=== PATIENT | male | born 1985 | race American Indian/Alaskan Native ===

== ENCOUNTER 2018-10-15 07:37 | Emergency (ER) | payer MEDICAID, OTHER, SELFPAY ==
--- NOTE | 2018-10-15 07:47 | DI.RAD.S_ITS ---
PROCEDURE: XR CHEST 2V INDICATIONS: SOB TECHNIQUE: 2 views of the chest were acquired. COMPARISON: [facility], , CHEST 2VW, 05/11/2009, 0:04. FINDINGS: Surgical changes and devices: None. Lungs and pleura: Lungs are clear. No pleural effusions or pneumothorax. Mediastinum: Mediastinal contours are normal. Heart size is normal. Bones and chest wall: No suspicious bony abnormalities. Soft tissues appear unremarkable. IMPRESSION: No acute cardiopulmonary disease process. Dictated by: Sharmin Azar MD, PhD on 10/15/2018 at 8:12 Approved by: Sharmin Azar MD, PhD on 10/15/2018 at 8:13
[2018-10-15 07:49] VITALS: BP 138/89; PULSE 130; RESP 18; TEMP 37.2; O2SAT 97; BMI 24.2
--- NOTE | 2018-10-15 07:54 | ED_ITS ---
HPI - URI/Sore Throat General Chief Complaint: Upper Respiratory Symptoms Stated Complaint: FLU UPPER RESPITORY PAIN Time Seen by Provider: 10/15/18 07:39 Source: patient Mode of arrival: ambulatory Limitations: no limitations History of Present Illness HPI Narrative: A 33-year-old male occasional smoker whom also admits to IV use of heroin and smoking methamphetamines as recently as last night presents with some cough, runny nose, sore throat and bilateral lower back. He denies any measured fever or shaking chills. He states he has felt this way for about a week and has multiple family members with the flu, he is convinced he also has the flu. He denies nausea, vomiting or diarrhea. He denies dysuria, frequency or urgency. He states he has a burning sensation in his lungs which is worse with a deep breath Onset (ago): day(s) Duration: intermittent Severity: moderate Relieving factors: nothing Context: sick contacts Treatments prior to arrival: none Related Data Home Medications Medication Instructions Recorded Confirmed acetaminophen 1,000 mg PO PRN #0 02/17/10 Allergies Allergy/AdvReac Type Severity Reaction Status Date / Time No Known Drug Allergies Allergy Verified 10/15/18 07:49 Review of Systems Constitutional Reports body ache(s), Denies chills, Denies fever(s), Denies lethargy and Denies weakness Eyes Denies change in vision, Denies eye discharge, Denies irritation and Denies loss of vision ENT Ears, Nose, Mouth, and Throat: Denies change in voice, Denies neck pain and Denies sore throat Cardiovascular Denies chest pain, Denies irregular heart rhythm, Denies lightheadedness, Denies palpitations, Denies dyspnea, Denies dyspnea on exertion and Denies orthopnea Respiratory Denies cough, Denies dyspnea, Denies dyspnea on exertion and Denies wheezing Gastrointestinal Gastrointestinal: Denies abdominal pain, Denies change in bowel habits, Denies diarrhea, Denies nausea and Denies vomiting Genitourinary Denies hematuria, Denies flank pain, Denies urinary incontinence and Denies urinary urgency Musculoskeletal Denies neck pain Integumentary/Breasts Denies pruritus, Denies erythema, Denies rash and Denies wounds Neurologic Denies confusion, Denies loss of vision and Denies weakness Psychiatric Denies anxiety, Denies confusion, Denies depression, Denies homicidal ideation and Denies suicidal ideation Endocrine Denies palpitations Hematologic/Lymphatic Denies easy bruising Allergic/Immunologic Denies wheezing PFSH Social History Smoking Status: Current every day smoker Social History Smoking Status: Current every day smoker Exam Narrative Exam Narrative: GENERAL: Patient is fidgeting a bit with pressured speech and pacing in the room, he admits to smoking methamphetamines last night This is a w ell-nourished, well-developed patient, in mild distress. HEAD: Atraumatic. Normocephalic. No temporal or scalp tenderness. EYES: Pupils equal round and reactive. Extraocular motions intact. No scleral icterus. No injection or drainage. ENT: Nose without bleeding, purulent drainage or septal hematoma. Throat without erythema, tonsillar hypertrophy or exudate. Uvula midline. Airway patent. NECK: Trachea midline. No JVD or lymphadenopathy. Supple, nontender, no meningeal signs. CARDIOVASCULAR: Regular rate and rhythm without murmurs, gallops, or rubs. RESPIRATORY: Clear to auscultation. Breath sounds equal bilaterally. No wheezes, rales, or rhonchi. GASTROINTESTINAL: Abdomen soft, non-tender, nondistended. No hepato- splenomegaly, or palpable masses. No guarding. EXTREMITIES: No clubbing, cyanosis, or edema. No joint tenderness, effusion, or edema noted. BACK: No midline tenderness or neurologic findings such as saddle anesthesia, numbness, tingling or depressed reflexes NEURO: AOx3. SKIN: No rash or erythema. Initial Vital Signs Initial Vital Signs: Vital Signs Temperature 98.9 F 10/15/18 07:49 Pulse Rate 130 H 10/15/18 07:49 Respiratory Rate 18 10/15/18 07:49 Blood Pressure 138/89 10/15/18 07:49 Pulse Oximetry 97 10/15/18 07:49 Course Orders Ordered: Discontinued Medications Ibuprofen (Advil) 800 mg PO NOW ONE Stop: 10/15/18 07:47 Last Admin: 10/15/18 07:59 Dose: 800 mg Vital Signs - 8 hr 10/15/18 07:49 10/15/18 08:43 Temperature 98.9 F Pulse Rate 130 H 97 H Respiratory Rate 18 18 Blood Pressure 138/89 125/76 Pulse Oximetry 97 96 MDM - URI/Sore Throat Lab Data Lab Results 03/18/19 03/18/19 Range/Units 07:50 07:50 Urine Opiates Screen Positive H (Negative) Ur Oxycodone Screen Positive H (Negative) Urine Methadone Screen Negative (Negative) Ur Barbiturates Screen Negative (Negative) U Tricyclic Antidepress Negative (Negative) Ur Phencyclidine Scrn Negative (Negative) Ur Amphetamines Screen Positive H (Negative) U Methamphetamines Scrn Positive H (Negative) Ur MDMA Scrn (Ecstasy) Positive H (Negative) U Benzodiazepines Scrn Negative (Negative) Urine Cocaine Screen Negative (Negative) U Marijuana (THC) Screen Negative (Negative) Influenza A & B (PCR) Negative (Negative) MDM Narrative Medical decision making narrative: 33-year-old male with full capacity to make his own decisions refuses any more thorough evaluation such as blood work despite a lengthy discussion about his increased risk given his use of IV drugs. He has no midline back tenderness making the likelihood of epidural abscess or spinal osteomyelitis much last. Furthermore the patient has no chest pain or friction rub Discharge Plan Departure Patient Disposition: Home Clinical Impression: Upper respiratory infection Qualifiers: URI type: unspecified viral URI Qualified Code(s): J06.9 - Acute upper respiratory infection, unspecified Discharge Date/Time: 10/15/18 08:44 Interventions: ED Discharge Assessment Last Done: 10/15/18 08:43 Instructions: DI for Viral Upper Respiratory Infection -- Adult Activity Restrictions/Additional Instructions: *You have been diagnosed with [ viral syndrome, back pain ] *What to do: *Take medications as directed: over the counter Motrin/Tylenol *Follow up with your primary care provider in 2-3 days, call for an appointment. Let them know you were seen in the Emergency Department and that we ask that you be seen in follow up *Return to ER if you should have any new, worsening or concerning symptoms, such as [ fever, shaking chills, nausea, vomiting, chest pain, shortness of breath or other bothersome symptoms] Prescriptions: No Action acetaminophen 325 MG tablet 1,000 mg PO PRN Qty: 0 RF: 0
[2018-10-15] MEDS: IBUPROFEN 400 MG TABLET 800 MG PO (07:59)
[2018-10-15 08:09] LABS: Influenza A and B by PCR Rapid Negative (Negative)
[2018-10-15 08:13] LABS: Urine Amphetamines Positive (Negative); Urine Cocaine Negative (Negative); Urine MDMA Positive (Negative); Urine Methamphetamines Positive (Negative); Urine Morphine/Opi cutoff 2000 Positive (Negative); Urine Phencyclidine Negative (Negative); Urine Tetrahydrocannabinol Negative (Negative)
[2018-10-15 08:14] LABS: Urine Barbiturates Negative (Negative); Urine Benzodiazepines Negative (Negative); Urine Methadone Negative (Negative); Urine Oxycodone Positive (Negative); Urine Tricyclic Antidepressant Negative (Negative)
[2018-10-15 08:43] VITALS: BP 125/76; PULSE 97; RESP 18; O2SAT 96
== END 2018-10-15 08:44 | disposition home or self-care (01) ==
PROVIDERS: Emergency Provider Emergency Medicine
DX: J06.9 Acute upper respiratory infection, unspecified (principal)
CPT/HCPCS: 71046; 80305; 87400; 99282; 99284

== ENCOUNTER 2021-01-13 22:27 | Emergency (ER) | payer MEDICAID, OTHER, SELFPAY ==
[2021-01-13 22:35] VITALS: BP 173/114; PULSE 99; RESP 16; TEMP 36.3; O2SAT 97; BMI 30.7
[2021-01-13] MEDS: FLUORESCEIN 1 MG STRIP EYE-RIGHT (22:46)
[2021-01-13] MEDS: PROPARACAINE 0.5% OPHTH SOL 1 DROPS EYE-RIGHT (22:47)
--- NOTE | 2021-01-13 23:26 | ED.EYEPROB ---
HPI - Eye Problem General Chief complaint: Eye Problems Stated complaint: rt eye possible FB Time Seen by Provider: 01/13/21 22:59 Source: patient Mode of arrival: Ambulatory Limitations: no limitations History of Present Illness HPI Narrative: Patient is a 35-year-old male with history of polysubstance abuse but clean for 20 months presenting with right eye pain. He says 3 days ago he was trying to put a bowl into a boat he is unsure if he got anything in his eye but since then he said increased sensitivity to light and foreign body sensation. He denies any drainage from it no change in vision. He is quite anxious. chief complaint: eye pain Onset (ago): day(s) Onset description: sudden Duration: constant Location: right eye Eye Symptoms: foreign body sensation Related Data Home Medications Medication Instructions Recorded Confirmed acetaminophen 1,000 mg PO PRN #0 02/17/10 Allergies Allergy/AdvReac Type Severity Reaction Status Date / Time No Known Drug Allergies Allergy Verified 10/15/18 07:49 Review of Systems Review of Systems Narrative: GENERAL: Denies chills,fever HEENT: See HPI RESPIRATORY: Denies dyspnea, cough, wheezing CARDIOVASCULAR: Denies chest pain, palpitations GASTROINTESTINAL: Denies nausea, vomiting MUSCULOSKELETAL: Denies extremity pain, injury SKIN: No rash, no laceration, no pruritus NEUROLOGIC: Denies weakness, dizziness, headache, numbness 8 point review of systems is negative except for those stated above and HPI Patient History Medical History Polysubstance abuse Social History Smoking Status: Current every day smoker Smoking Status: Current every day smoker Substance Use Type: heroin, amphetamines and methamphetamine Exam Initial Vital Signs Initial Vital Signs: Vital Signs Temperature 97.3 F L 01/13/21 22:35 Pulse Rate 99 H 01/13/21 22:35 Respiratory Rate 16 01/13/21 22:35 Blood Pressure 173/114 H 01/13/21 22:35 Pulse Oximetry 97 01/13/21 22:35 GENERAL: Well-appearing, well-nourished and in no acute distress. Right eye was treated with proparacaine, stained with fluorescein. The obvious scratch across cornea no foreign body identified no laceration EOMI intact, MERLENE CARDIOVASCULAR: peripheral pulses in tact, cap refill <2 sec RESPIRATORY: No respiratory distress, speaks in full sentences without difficulty EXTREMITIES: Normal range of motion, no clubbing or edema. Neurovascularly intact NEUROLOGICAL: Cranial nerves II through XII grossly intact. Normal gait and speech. SKIN: Warm, dry, no petechiae, no rashes or lesions. Course Orders Ordered: Discontinued Medications Fluorescein Sodium (Fluorescein 1 Mg Strip) 1 mg EYE-RIGHT NOW ONE Stop: 01/13/21 22:39 Last Admin: 01/13/21 22:46 Dose: 1 mg Documented by: GENO Polymyxin/Trimethoprim Sulfate (Polymy B/Trimeth Ophth Prepack) 1 bottle MISC SEEINSTR ONE Stop: 01/13/21 23:34 Last Admin: 01/13/21 23:36 Dose: 1 prepack Documented by: ROYAL Proparacaine HCl (Proparacaine 0.5% Ophth Shelia) 1 drops EYE-RIGHT NOW ONE Stop: 01/13/21 22:38 Last Admin: 01/13/21 22:47 Dose: 1 drops Documented by: GENO Vital Signs Vital signs: Vital Signs - 8 hr 01/13/21 22:35 01/13/21 23:45 Temperature 97.3 F L Pulse Rate 99 H 80 Respiratory Rate 16 22 Blood Pressure 173/114 H 145/88 H Pulse Oximetry 97 99 Discharge Plan Departure Patient Disposition: Home Clinical Impression: Corneal abrasion Qualifiers: Encounter type: initial encounter Laterality: right Qualified Code(s): S05.01XA - Injury of conjunctiva and corneal abrasion without foreign body, right eye, initial encounter Instructions: Corneal Abrasion Activity Restrictions/Additional Instructions: *You have been diagnosed with right eye corneal abrasion *What to do: He will be sensitive to light but your eye should heal over the next few days you have small scratch in her eye. *Continue to take medications as directed Polytrim drops 1-2 drops every 4 hours while awake Motrin 800 mg every 8 hours if needed for [id number] pain Or Tylenol 1000 mg every 6 hours if needed for pain *Follow up with your primary care provider in 2-3 days *Return to ER if you should have increasing pain loss of vision, or any new, worsening or concerning symptoms Prescriptions: No Action acetaminophen 325 MG tablet 1,000 mg PO PRN Qty: 0 RF: 0
[2021-01-13] MEDS: POLYMY B/TRIMETH OPHTH PREPACK 1 BOTTLE MISC (23:36)
[2021-01-13 23:45] VITALS: BP 145/88; PULSE 80; RESP 22; O2SAT 99
== END 2021-01-13 23:45 | disposition home or self-care (01) ==
PROVIDERS: Emergency Provider Emergency Medicine
DX: S05.01XA Injury of conjunctiva and corneal abrasion without foreign body, right eye, initial encounter (principal)
CPT/HCPCS: 99282

== ENCOUNTER 2023-08-07 10:02 | Emergency (ER) | payer MEDICAID, OTHER, SELFPAY ==
[2023-08-07 10:13] VITALS: BP 135/104; PULSE 133; RESP 15; TEMP 36.4; O2SAT 98; BMI 29.0
[2023-08-07 10:36] LABS: Appearance Urine UA CLEAR; Color Urine UA ORANGE
[2023-08-07 10:41] LABS: Bacteria Urine Few (2-10); Culture Indicated Urine Specimen Cultured; Mucus Urine 1+ (Negative); RBC Urine 0-1/HPF (0-5/HPF); Squamous Epithelial Cell Urine 1-5 /HPF (0-5/HPF); WBC Urine 5-10/HPF (0-5/HPF)
[2023-08-07 10:52] LABS: Add Manual Diff / Slide Review NO; Basophils Absolute Auto 100 /uL (0-100); Basophils Percent Auto 0.8 % (0-2); Eosinophils Absolute Auto 0 /uL (0-450); Eosinophils Percent Auto 0.2 % (2-4); Hematocrit 48.4 % (41-53); Hemoglobin 16.1 g/dL (13.5-17.5); Lymphocytes Absolute Auto 1300 /uL (1100-4500); Lymphocytes Percent Auto 10.7 % (25-40); Mean Corpuscular HGB Conc 33.1 % (30-36); Mean Corpuscular Hemoglobin 29.9 PG (26-34); Mean Corpuscular Volume 90.3 fL (80-100); Monocytes Absolute Auto 600 /uL (0-900); Monocytes Percent Auto 5.1 % (3-14); Neutrophils Absolute Auto 10400 /uL (1500-7000); Neutrophils Percent Auto 83.2 % (50-75); Platelet Count 606 X10^3/uL (150-400); Red Blood Cell Count 5.36 X10^6/uL (4.5-5.9); Red Cell Distribution Width 18.2 % (11.6-14.8); White Blood Cell Count 12.5 X10^3/uL (4.5-11.0)
[2023-08-07 10:53] LABS: Alanine Aminotransferase 117 IU/L (<50); Albumin 4.2 g/dL (3.5-5.0); Albumin Globulin Ratio 1.1 (1.0-2.8); Alkaline Phosphatase 174 U/L (38-126); Aspartate Aminotransferase 149 IU/L (17-59); BUN Creatinine Ratio 9.9 (6-22); Bilirubin Total 2.6 mg/dL (0.2-1.3); Blood Urea Nitrogen 10 mg/dL (9-20); Calcium 9.1 mg/dL (8.4-10.2); Carbon Dioxide 21 mmol/L (22-32); Chloride 103 mmol/L (98-107); Estimated Glomerular Filt Rate > 60 mL/min (>60); Glucose 110 mg/dL (70-100); HEMOLYSIS 31 (0-50); Lipase 265 U/L (23-300); Potassium 3.6 mmol/L (3.4-5.1); Sodium 136 mmol/L (137-145); Total Protein 8.2 g/dL (6.3-8.2)
[2023-08-07 11:39] VITALS: BP 129/91; PULSE 127; O2SAT 98
[2023-08-07 12:42] VITALS: BP 135/97; PULSE 112; O2SAT 100
--- NOTE | 2023-08-07 13:27 | DI.CT.S_ITS ---
PROCEDURE: CT KIDNEY URETER BLADDER (KUB) INDICATIONS: flank pain hematura TECHNIQUE: Axial sections were acquired from the lung bases to the pubic symphysis. Coronal and sagittal reformats were performed. For radiation dose reduction, the following was used: automated exposure control, adjustment of mA and/or kV according to patient size. COMPARISON: None. FINDINGS: Image quality: Diagnostic. Lower Chest: No significant findings. URINARY: Right Kidney: No stones or hydronephrosis. Right Ureter: No hydroureter. Left Kidney: No stones or hydronephrosis. Left Ureter: No hydroureter. Bladder: Normal wall thickness. No stones. ABDOMEN: Liver: No contour-deforming solid mass. Diffusely decreased hepatic density. Gallbladder: No radiopaque gallstones or wall thickening. Biliary ducts: No biliary dilation. Pancreas: No ductal dilation. Spleen: Size is within normal limits. Adrenal Glands: No adrenal nodules. Stomach and Bowel: Normal colonic caliber, without significant wall thickening. Normal appendix. Peritoneum: No abnormal intraperitoneal fluid. No free air. Ventral Wall: No hernia. Abdominal Nodes: No enlarged retroperitoneal or mesenteric lymph nodes. Vessels: Aorta and inferior vena cava are normal in size. PELVIS: Pelvic Organs: Unremarkable. Pelvic Nodes: Unremarkable. Miscellaneous: No inguinal hernias are seen. Bones: Unremarkable. IMPRESSION: 1. No evidence of urinary tract calcification or obstruction. 2. Hepatic steatosis. 3. Normal appendix. Dictated by: Eneida Way M.D. on 08/07/2023 at 13:45 Approved by: Eneida Way M.D. on 08/07/2023 at 13:47
[2023-08-07] MEDS: LORazepam 0.5 MG TABLET 2 MG PO (13:40)
[2023-08-07 13:43] LABS: Ethanol (ETOH) 17 mg/dL
[2023-08-07 14:14] VITALS: BP 141/99; PULSE 107; O2SAT 97
--- NOTE | 2023-08-08 18:54 | ED.MALEGU ---
HPI - Male Genitourinary General Chief complaint: Urogenital-Male Stated complaint: blood in urine chest pain Time Seen by Provider: 08/07/23 11:24 Source: patient Mode of arrival: Ambulatory History of Present Illness HPI Narrative: 38-year-old male here complaining of dysuria. Also thinks he may have had some blood in his urine yesterday. Not having fevers leg pain or vomiting. Also actively using methamphetamine and alcohol. He is interested in treatment for his alcohol use. Feels a little shaky because he has not drank in a few hours. Related Data Home Medications Medication Instructions Recorded Confirmed acetaminophen 325 mg tablet 1,000 mg PO PRN ##0 02/17/10 Previous Rx's Medication Instructions Recorded cefdinir 300 mg capsule 300 mg PO BID #20 caps 08/07/23 Allergies Allergy/AdvReac Type Severity Reaction Status Date / Time No Known Drug Allergies Allergy Verified 08/07/23 10:13 Patient History Medical History Polysubstance abuse Social History Smoking Status: Current every day smoker Smoking Status: Current every day smoker tobacco type: vaping alcohol intake frequency: 3 or more drinks per day Substance Use Type: heroin, amphetamines and methamphetamine Exam Initial Vital Signs Initial Vital Signs: Vital Signs Temperature 97.6 F 08/07/23 10:13 Pulse Rate 133 H 08/07/23 10:13 Respiratory Rate 15 08/07/23 10:13 Blood Pressure 135/104 H 08/07/23 10:13 Pulse Oximetry 98 08/07/23 10:13 Oxygen Delivery Method Room Air 08/07/23 10:13 Const General: No acute distress HENMT Head: normocephalic and atraumatic Mouth: moist mucous membranes Resp Effort & Inspection: normal respiratory effort and able to speak in complete sentences Auscultation: clear to auscultation bilaterally Cardio Rate: tachycardic Rhythm: regular rhythm Heart Sounds: S1 normal, S2 normal and no murmurs GI Palpation: soft and No tender Other: No CVAT Skin General: dry skin and warm Neuro General: patient alert and patient oriented x3 Psych Appearance: well kempt Mood: congruent mood Thought Process: normal Thought Content: no delusions, no hallucinations, no homicidality and suicidality Course Orders Ordered: Discontinued Medications Lorazepam (Lorazepam 0.5 Mg Tablet) 2 mg PO NOW ONE Stop: 08/07/23 13:28 Last Admin: 08/07/23 13:40 Dose: 2 mg Documented By: GREGG Ondansetron HCl (Ondansetron 4 Mg/2 Ml Inj) 4 mg IV NOW PRN PRN Reason: Nausea And Vomiting MDM - Male Genitourinary Lab Data Lab results narrative: CBC showed a mild leukocytosis and elevated platelet count, nonspecific. Total bilirubin is 2 6, he does not have right upper quadrant tenderness or jaundice. Urinalysis is remarkable for pyuria 08/07/23 10:25 08/07/23 10:25 Labs: Lab Results 08/07/23 08/07/23 08/07/23 Range/Units 10:21 10:25 13:35 WBC 12.5 H (4.5-11.0) X10^3/uL RBC 5.36 (4.5-5.9) X10^6/uL Hgb 16.1 (13.5-17.5) g/dL Hct 48.4 (41-53) % MCV 90.3 (80-100) fL MCH 29.9 (26-34) PG MCHC 33.1 (30-36) % RDW 18.2 H (11.6-14.8) % Plt Count 606 H (150-400) X10^3/uL Neut % (Auto) 83.2 H (50-75) % Lymph % (Auto) 10.7 L (25-40) % [place] % (Auto) 5.1 (3-14) % Eos % (Auto) 0.2 L (2-4) % Baso % (Auto) 0.8 (0-2) % Neut # (Auto) 61570 H (1937-8983) /uL Lymph # (Auto) 1300 (1669-6462) /uL [place] # (Auto) 600 (0-900) /uL Eos # (Auto) 0 (0-450) /uL Baso # (Auto) 100 (0-100) /uL Sodium 136 L (137-145) mmol/L Potassium 3.6 (3.4-5.1) mmol/L Chloride 103 (98-107) mmol/L Carbon Dioxide 21 L (22-32) mmol/L BUN 10 (9-20) mg/dL Creatinine 1.01 (0.66-1.25) mg/dL Estimated GFR > 60 (>60) mL/min BUN/Creatinine Ratio 9.9 (6-22) Glucose 110 H (70-100) mg/dL Calcium 9.1 (8.4-10.2) mg/dL Total Bilirubin 2.6 H (0.2-1.3) mg/dL AST 149 H (17-59) IU/L ALT 117 H (<50) IU/L Alkaline Phosphatase 174 H (38-126) U/L Total Protein 8.2 (6.3-8.2) g/dL Albumin 4.2 (3.5-5.0) g/dL Globulin 4.0 (1.7-4.1) g/dL Albumin/Globulin Ratio 1.1 (1.0-2.8) Lipase 265 (23-300) U/L Urine Color [place] Urine Appearance Clear Urine pH TNP Ur Specific [place] TNP Urine Protein TNP Urine Glucose (UA) TNP Urine Ketones TNP Urine Occult Blood TNP Urine Nitrate TNP Urine Bilirubin TNP Urine Urobilinogen TNP Ur Leukocyte Esterase TNP Urine RBC 0-1/hpf (0-5/HPF) Urine WBC 5-10/hpf H (0-5/HPF) Ur Squamous Epith Cells 1-5 /hpf (0-5/HPF) Urine Bacteria Few (2-10) H (None) Urine Mucus 1+ H (Negative) Ur Culture Indicated? Specimen cultured Ethyl Alcohol 17 H ( - 10) mg/dL [facility] Narrative Medical decision making narrative: 38-year-old male with urinary tract symptoms and pyuria. Does not have CVA t.i.d. not think this is pyelonephritis, it is unusual for a young male to have a UTI but with his methamphetamine abuse, I think at this point I would treat and recommend follow up with primary care. He does have access to primary care. He has interest in treatment for substance use disorder. I encouraged him to seek outpatient treatment he does have resources available for this. Discharge Plan Departure Patient Disposition: Home Clinical Impression: Polysubstance abuse Urinary tract infection Qualifiers: Urinary tract infection type: site unspecified Hematuria presence: with hematuria Qualified Code(s): N39.0 - Urinary tract infection, site not specified Activity Restrictions/Additional Instructions: Emergency department testing today shows evidence of a urinary tract infection. I have provided a prescription for an antibiotic, start this today and take the full course. We also discussed your wish to quit using alcohol. You can try [facility] at [phone] or reach out to try with resources that are available to you. It may not be a reid idea to stop drinking alcohol completely until you have arranged for a detox placement. If you are having fevers, shaking chills, uncontrolled vomiting withdrawal seizures or severe withdrawal symptoms such as tremors recheck in the emergency department. Follow up soon with your primary care provider for a recheck. Prescriptions: New cefdinir 300 mg capsule 300 mg PO BID Qty: 20 0RF No Action acetaminophen 325 MG tablet 1,000 mg PO PRN Qty: 0 Stand Alone Forms: Patient Portal/API
== END 2023-08-07 14:14 | disposition home or self-care (01) ==
PROVIDERS: Emergency Provider Emergency Medicine
DX: N39.0 Urinary tract infection, site not specified (principal); F19.10 Other psychoactive substance abuse, uncomplicated; R07.9 Chest pain, unspecified
CPT/HCPCS: 36415; 74176; 80053; 80320; 81001; 83690; 85025; 87086; 93005; 93010; 99283; 99284